=== PATIENT | female | born 2000 | race Caucasian/White ===

== ENCOUNTER 2022-06-14 14:28 | Emergency (ER) | payer SELFPAY ==
[2022-06-14 14:49] VITALS: BP 135/87; PULSE 109; RESP 18; TEMP 36.9; O2SAT 98; BMI 24.5
[2022-06-14 18:42] LABS: Appearance Urine UA CLEAR; Bilirubin Urine UA NEGATIVE (NEGATIVE); Color Urine UA YELLOW; Glucose Urine UA TRACE g/dL (Negative); Ketones Urine UA NEGATIVE (NEGATIVE); Leukocyte Esterase Urine UA TRACE (NEGATIVE); Nitrite Urine UA NEGATIVE (Negative); Occult Blood Urine UA NEGATIVE (Negative); Protein Urine UA NEGATIVE (Negative); Urobilinogen Urine UA 0.2 E.U./dL (0.2)
[2022-06-14] MEDS: cefTRIAXone 1,000 MG in SODIUM CHLORIDE 0.9% 100 ML 200 MG IV (19:05)
[2022-06-14] MEDS: valACYclovir 500 MG TABLET 1000 MG PO (19:06)
[2022-06-14] MEDS: DOXYCYCLINE HYCLATE 100 MG TABLET PO (19:06)
[2022-06-14] MEDS: KETOROLAC 30 MG/ML VIAL 15 MG IM (19:06)
[2022-06-14 19:14] LABS: RBC Urine None Seen (0-5/HPF)
[2022-06-14 19:15] LABS: Bacteria Urine None Seen; Squamous Epithelial Cell Urine 0-1 /HPF (0-5/HPF); WBC Urine 0-1/HPF (0-5/HPF)
[2022-06-14 19:16] LABS: Add Manual Diff / Slide Review NO; Basophils Absolute Auto 100 /uL (0-100); Basophils Percent Auto 0.5 % (0-2); Eosinophils Absolute Auto 100 /uL (0-450); Eosinophils Percent Auto 0.5 % (2-4); Hematocrit 38.5 % (36-46); Hemoglobin 12.8 g/dL (12.0-16.0); Lymphocytes Absolute Auto 2500 /uL (1100-4500); Lymphocytes Percent Auto 21.1 % (25-40); Mean Corpuscular HGB Conc 33.2 % (30-36); Mean Corpuscular Hemoglobin 29.1 PG (26-34); Mean Corpuscular Volume 87.6 fL (80-100); Monocytes Absolute Auto 1200 /uL (0-900); Monocytes Percent Auto 10.5 % (3-14); Neutrophils Absolute Auto 7900 /uL (1500-7000); Neutrophils Percent Auto 67.4 % (50-75); Platelet Count 293 X10^3/uL (150-400); White Blood Cell Count 11.7 X10^3/uL (4.5-11.0)
--- NOTE | 2022-06-14 19:26 | ED_ITS ---
HPI - Female Genitourinary <JACQUIE Leahy - Last Filed: 06/14/22 20:16> General Chief complaint: Urogenital-Female Stated complaint: Pelvic pain Time Seen by Provider: 06/14/22 17:32 Source: patient Mode of arrival: Ambulatory History of Present Illness HPI Narrative: This is a 21-year-old female presents to the emergency department complaining rash of her genital region, swollen lymph nodes in her groin, mild abdominal pain in her groin region and denies dysuria, urinary frequency or urgency, flank pain, fever but endorses chills, states that she had intercourse approximately 3 weeks ago with her boyfriend who reportedly cheated on her so she is concerned about STDs or STIs. States that she does not have any history of herpes but is concerned about it mostly. She states that she just finished her menses, could be finishing it currently. Related Data Previous Rx's Medication Instructions Recorded cephalexin 500 mg capsule 500 mg PO QID 7 days #28 caps 06/14/22 doxycycline hyclate 100 mg capsule 100 mg PO BID 10 days #20 caps 06/14/22 mupirocin 2 % topical ointment 1 applic topical BID #15 grams 06/14/22 Allergies Allergy/AdvReac Type Severity Reaction Status Date / Time No Known Drug Allergies Allergy Verified 06/14/22 14:55 Review of Systems <JACQUIE Leahy - Last Filed: 06/14/22 20:16> Review of Systems Narrative: Review of systems is negative for acute abnormalities unless otherwise noted in HPI Patient History <JACQUIE Leahy - Last Filed: 06/14/22 20:16> alcohol intake frequency: a few times a week Substance Use Type: marijuana Exam <JACQUIE Leahy Last Filed: 06/14/22 20:16> Narrative Exam Narrative: Reviewed vitals signs and nursing notes. General: cooperative, comfortable, in no acute distress, well groomed HEENT: symmetrical facial expressions, moist mucous membranes Cardiovascular: regular rate and rhythm, no peripheral edema, warm extremities Respiratory: normal effort, able to speak in complete sentences, without wheezing, stridor, or abnormal breath sounds. No retractions or tachypnea. GI: abdomen soft, nontender to palpation, nondistended, without masses, rebound tenderness or exquisite tenderness with exam. MSK: moves all extremities, neurovascularly intact, no weakness, normal tone Skin: brisk capillary refill, folliculitis versus cellulitis of her external labia, genital region where the pubic hair grows, erythema ascending on the right groin Chief Resource Officer: Maculopapular raised lesions appears like folliculitis with an erythematous base, warmth, from the bass of the clitoris and external labia, right groin adenopathy with exquisite tenderness, warmth, vaginal exam without foreign body, odor, or abnormal vaginal secretion. Wound culture, HSV culture was taken from the drainage of 1 of the lesions at the top of the clitoris, UA pending Neuro: normal speech and cognition, A&O x3, ambulatory, clear speech Psych: mental status is grossly normal, congruent mood, normal affect, pleasant and cooperative Initial Vital Signs Initial Vital Signs: Vital Signs Temperature 98.5 F 06/14/22 14:49 Pulse Rate 109 H 06/14/22 14:49 Respiratory Rate 18 06/14/22 14:49 Blood Pressure 135/87 06/14/22 14:49 Pulse Oximetry 98 06/14/22 14:49 Oxygen Delivery Method 06/14/22 14:49 <Noah Lyn MD - Last Filed: 06/15/22 02:03> Initial Vital Signs Initial Vital Signs: Vital Signs Temperature 98.5 F 06/14/22 14:49 Pulse Rate 109 H 06/14/22 14:49 Respiratory Rate 18 06/14/22 14:49 Blood Pressure 135/87 06/14/22 14:49 Pulse Oximetry 98 06/14/22 14:49 Oxygen Delivery Method 06/14/22 14:49 Course <JACQUIE Leahy - Last Filed: 06/14/22 20:16> Orders Ordered: ED Orders 06/14/22 18:00 UA Complete [Urinalysis and Microscopic] Stat Urine Culture Stat Wet Prep Tric BV Maryann Stat 06/14/22 18:20 Chlamydia Gonorrhea PCR -URINE Stat 06/14/22 18:43 HSV 1/2 DNA PCR SWAB or BLOOD Stat 06/14/22 18:44 Blood Culture Stat 06/14/22 18:55 CBC Auto Diff [Complete Blood Count AUTO DIFF] Stat CMP [Comprehensive Metabolic Panel] Stat CRP [C-Reactive Protein Quant] Stat HSV 1/2 DNA PCR SWAB or BLOOD Stat Test [HCG Quantitative /Beta subunit] Stat Procalcitonin Stat 06/14/22 20:30 Genital Culture Stat Discontinued Medications Doxycycline Hyclate (Doxycycline Hyclate 100 Mg Tablet) 100 mg PO NOW ONE Stop: 06/14/22 18:45 Last Admin: 06/14/22 19:06 Dose: 100 mg Documented By: ROSE Ceftriaxone Sodium 1,000 mg/ (Sodium Chloride) 100 mls @ 200 mls/hr IV NOW ONE Stop: 06/14/22 18:45 Last Infusion: 06/14/22 19:40 Dose: 0 mls/hr Documented By: Admin: 06/14/22 19:05 Dose: 200 mls/hr Documented By: ROSE Ketorolac Tromethamine (Ketorolac 30 Mg/Ml Vial) 15 mg IM NOW ONE Stop: 06/14/22 18:45 Last Admin: 06/14/22 19:06 Dose: 15 mg Documented By: ROSE Valacyclovir HCl (Valacyclovir 500 Mg Tablet) 1,000 mg PO NOW ONE Stop: 06/14/22 18:45 Last Admin: 06/14/22 19:06 Dose: 1,000 mg Documented By: ROSE Vital Signs Vital signs: Vital Signs - 8 hr 06/14/22 19:40 Pulse Rate 90 Respiratory Rate 17 Blood Pressure 136/77 Pulse Oximetry 98 Oxygen Delivery Method Room Air <Noah Lyn MD - Last Filed: 06/15/22 02:03> Orders Ordered: ED Orders 06/14/22 18:00 UA Complete [Urinalysis and Microscopic] Stat Urine Culture Stat Wet Prep Tric BV Maryann Stat 06/14/22 18:20 Chlamydia Gonorrhea PCR -URINE Stat 06/14/22 18:43 HSV 1/2 DNA PCR SWAB or BLOOD Stat 06/14/22 18:44 Blood Culture Stat 06/14/22 18:55 CBC Auto Diff [Complete Blood Count AUTO DIFF] Stat CMP [Comprehensive Metabolic Panel] Stat CRP [C-Reactive Protein Quant] Stat HSV 1/2 DNA PCR SWAB or BLOOD Stat Test [HCG Quantitative /Beta subunit] Stat Procalcitonin Stat 06/14/22 20:30 Genital Culture Stat Discontinued Medications Doxycycline Hyclate (Doxycycline Hyclate 100 Mg Tablet) 100 mg PO NOW ONE Stop: 06/14/22 18:45 Last Admin: 06/14/22 19:06 Dose: 100 mg Documented By: ROSE Ceftriaxone Sodium 1,000 mg/ (Sodium Chloride) 100 mls @ 200 mls/hr IV NOW ONE Stop: 06/14/22 18:45 Last Infusion: 06/14/22 19:40 Dose: 0 mls/hr Documented By: Admin: 06/14/22 19:05 Dose: 200 mls/hr Documented By: ROSE Ketorolac Tromethamine (Ketorolac 30 Mg/Ml Vial) 15 mg IM NOW ONE Stop: 06/14/22 18:45 Last Admin: 06/14/22 19:06 Dose: 15 mg Documented By: ROSE Valacyclovir HCl (Valacyclovir 500 Mg Tablet) 1,000 mg PO NOW ONE Stop: 06/14/22 18:45 Last Admin: 06/14/22 19:06 Dose: 1,000 mg Documented By: ROSE Vital Signs Vital signs: Vital Signs - 8 hr 06/14/22 19:40 Pulse Rate 90 Respiratory Rate 17 Blood Pressure 136/77 Pulse Oximetry 98 Oxygen Delivery Method Room Air MDM - Female Genitourinary <JACQUIE Leahy - Last Filed: 06/14/22 20:16> Lab Data Result diagrams: 06/14/22 18:55 06/14/22 18:55 Labs: Lab Results 06/14/22 06/14/22 06/14/22 Range/Units 18:00 18:20 18:55 WBC 11.7 H (4.5-11.0) X10^3/uL RBC 4.40 (4.0-5.2) X10^6/uL Hgb 12.8 (12.0-16.0) g/dL Hct 38.5 (36-46) % MCV 87.6 (80-100) fL MCH 29.1 (26-34) PG MCHC 33.2 (30-36) % RDW 14.0 (11.6-14.8) % Plt Count 293 (150-400) X10^3/uL Neut % (Auto) 67.4 (50-75) % Lymph % (Auto) 21.1 L (25-40) % [place] % (Auto) 10.5 (3-14) % Eos % (Auto) 0.5 L (2-4) % Baso % (Auto) 0.5 (0-2) % Neut # (Auto) 7900 H (6837-9086) /uL Lymph # (Auto) 2500 (7453-1997) /uL [place] # (Auto) 1200 H (0-900) /uL Eos # (Auto) 100 (0-450) /uL Baso # (Auto) 100 (0-100) /uL Sodium (137-145) mmol/L Potassium (3.4-5.1) mmol/L Chloride (98-107) mmol/L Carbon Dioxide (22-32) mmol/L BUN (7-17) mg/dL Creatinine (0.52-1.04) mg/dL Estimated GFR (>60) mL/min BUN/Creatinine Ratio (6-22) Glucose (70-100) mg/dL Calcium (8.4-10.2) mg/dL Total Bilirubin (0.2-1.3) mg/dL AST (14-36) IU/L ALT (<35) IU/L Alkaline Phosphatase (38-126) U/L C-Reactive Protein (<1.0) mg/dL Total Protein (6.3-8.2) g/dL Albumin (3.5-5.0) g/dL Globulin (1.7-4.1) g/dL Albumin/Globulin Ratio (1.0-2.8) Procalcitonin (<0.5) ng/mL HCG, Quant mIU/mL Urine Color Yellow Urine Appearance Clear Urine pH 7.0 (4.5-8.0) Ur Specific [place] 1.010 (1.000-1.035) Urine Protein Negative (Negative) Urine Glucose (UA) Trace H (Negative) g/dL Urine Ketones Negative (NEGATIVE) Urine Occult Blood Negative (Negative) Urine Nitrate Negative (Negative) Urine Bilirubin Negative (NEGATIVE) Urine Urobilinogen 0.2 (0.2) E.U./dL Ur Leukocyte Esterase Trace H (NEGATIVE) Urine RBC None seen (0-5/HPF) Urine WBC 0-1/hpf (0-5/HPF) Ur Squamous Epith Cells 0-1 /hpf (0-5/HPF) Urine Bacteria None seen (None) Ur Chlamydia DNA (PCR) Not detected N gonorrhoeae DNA (PCR) Not detected 06/14/22 06/14/22 Range/Units 18:55 18:55 WBC (4.5-11.0) X10^3/uL RBC (4.0-5.2) X10^6/uL Hgb (12.0-16.0) g/dL Hct (36-46) % MCV (80-100) fL MCH (26-34) PG MCHC (30-36) % RDW (11.6-14.8) % Plt Count (150-400) X10^3/uL Neut % (Auto) (50-75) % Lymph % (Auto) (25-40) % [place] % (Auto) (3-14) % Eos % (Auto) (2-4) % Baso % (Auto) (0-2) % Neut # (Auto) (6431-1874) /uL Lymph # (Auto) (5962-9338) /uL [place] # (Auto) (0-900) /uL Eos # (Auto) (0-450) /uL Baso # (Auto) (0-100) /uL Sodium 138 (137-145) mmol/L Potassium 3.6 (3.4-5.1) mmol/L Chloride 101 (98-107) mmol/L Carbon Dioxide 26 (22-32) mmol/L BUN 7 (7-17) mg/dL Creatinine 0.66 (0.52-1.04) mg/dL Estimated GFR > 60 (>60) mL/min BUN/Creatinine Ratio 10.6 (6-22) Glucose 93 (70-100) mg/dL Calcium 9.3 (8.4-10.2) mg/dL Total Bilirubin 0.4 (0.2-1.3) mg/dL AST 24 (14-36) IU/L ALT 20 (<35) IU/L Alkaline Phosphatase 97 (38-126) U/L C-Reactive Protein 4.5 H (<1.0) mg/dL Total Protein 8.9 H (6.3-8.2) g/dL Albumin 4.7 (3.5-5.0) g/dL Globulin 4.2 H (1.7-4.1) g/dL Albumin/Globulin Ratio 1.1 (1.0-2.8) Procalcitonin 0.07 (<0.5) ng/mL HCG, Quant < 2.4 mIU/mL Urine Color Urine Appearance Urine pH (4.5-8.0) Ur Specific [place] (1.000-1.035) Urine Protein (Negative) Urine Glucose (UA) (Negative) g/dL Urine Ketones (NEGATIVE) Urine Occult Blood (Negative) Urine Nitrate (Negative) Urine Bilirubin (NEGATIVE) Urine Urobilinogen (0.2) E.U./dL Ur Leukocyte Esterase (NEGATIVE) Urine RBC (0-5/HPF) Urine WBC (0-5/HPF) Ur Squamous Epith Cells (0-5/HPF) Urine Bacteria (None) Ur Chlamydia DNA (PCR) N gonorrhoeae DNA (PCR) MDM Narrative Medical decision making narrative: This is a 21-year-old female presents to the emergency department with a rash on her genital region, reportedly her significant other cheated on her while they were together within the last month and she is concerned about STIs. She is had an itchy rash of her external genitalia for 1-2 weeks, states it started at the bass of the clitoris, progressed to tenderness, now with macular papule raised l esions, an erythematous base, right groin lymphadenopathy with patient endorsing chills. She has a mild leukocytosis of 11.7, and was given Toradol. Her UA was positive for leukocyte esterase without significant bacterial load. Wet prep was completed and was negative for Trichomonas, Maryann, WBCs and clue cells. Blood cultures were obtained prior to antibiotics, HSV swab was obtained from secretions from her clitoral bass, wound culture was obtained from this area as well, gonorrhea and chlamydia via dirty urine and tests are pending for her herpes, chlamydia, gonorrhea, cultures. She was treated in the emergency department with ceftriaxone and doxycycline, encouraged to stay hydrated, was prescribed cephalexin and doxycycline as this rash looked most like cellulitis versus folliculitis. There were no blisters or fluid-filled pustules, patient does shave her genital region and has not recently. She denies any upper respiratory illness symptoms, endorses some mild abdominal pain which she thinks is related to her groin pain. Patient wishes to be discharged, will follow up on her cultures, she is given strict return precautions for any worsening of her symptoms, she is not had nausea or vomiting, denies abdominal surgery in the past. She just finished her menses. Patient is appropriate and amenable to discharge home. Vital signs are stable on repeat examination is unremarkable. Patient has been informed of results. Patient has been given strict return to ER precautions for any new or worsening symptoms. Patient understands to follow up closely with outpatient providers as instructed. Patient understands plan and agrees to discharge home. All questions and concerns answered at this time. Update, patient's gonorrhea and chlamydia came back negative via urine PCR, her CRP is elevated at 4.5, hCG is negative at 2.4 <Noah Lyn MD - Last Filed: 06/15/22 02:03> Lab Data Labs: Lab Results 06/14/22 06/14/22 06/14/22 Range/Units 18:00 18:20 18:55 WBC 11.7 H (4.5-11.0) X10^3/uL RBC 4.40 (4.0-5.2) X10^6/uL Hgb 12.8 (12.0-16.0) g/dL Hct 38.5 (36-46) % MCV 87.6 (80-100) fL MCH 29.1 (26-34) PG MCHC 33.2 (30-36) % RDW 14.0 (11.6-14.8) % Plt Count 293 (150-400) X10^3/uL Neut % (Auto) 67.4 (50-75) % Lymph % (Auto) 21.1 L (25-40) % [place] % (Auto) 10.5 (3-14) % Eos % (Auto) 0.5 L (2-4) % Baso % (Auto) 0.5 (0-2) % Neut # (Auto) 7900 H (5903-1533) /uL Lymph # (Auto) 2500 (7601-6447) /uL [place] # (Auto) 1200 H (0-900) /uL Eos # (Auto) 100 (0-450) /uL Baso # (Auto) 100 (0-100) /uL Sodium (137-145) mmol/L Potassium (3.4-5.1) mmol/L Chloride (98-107) mmol/L Carbon Dioxide (22-32) mmol/L BUN (7-17) mg/dL Creatinine (0.52-1.04) mg/dL Estimated GFR (>60) mL/min BUN/Creatinine Ratio (6-22) Glucose (70-100) mg/dL Calcium (8.4-10.2) mg/dL Total Bilirubin (0.2-1.3) mg/dL AST (14-36) IU/L ALT (<35) IU/L Alkaline Phosphatase (38-126) U/L C-Reactive Protein (<1.0) mg/dL Total Protein (6.3-8.2) g/dL Albumin (3.5-5.0) g/dL Globulin (1.7-4.1) g/dL Albumin/Globulin Ratio (1.0-2.8) Procalcitonin (<0.5) ng/mL HCG, Quant mIU/mL Urine Color Yellow Urine Appearance Clear Urine pH 7.0 (4.5-8.0) Ur Specific [place] 1.010 (1.000-1.035) Urine Protein Negative (Negative) Urine Glucose (UA) Trace H (Negative) g/dL Urine Ketones Negative (NEGATIVE) Urine Occult Blood Negative (Negative) Urine Nitrate Negative (Negative) Urine Bilirubin Negative (NEGATIVE) Urine Urobilinogen 0.2 (0.2) E.U./dL Ur Leukocyte Esterase Trace H (NEGATIVE) Urine RBC None seen (0-5/HPF) Urine WBC 0-1/hpf (0-5/HPF) Ur Squamous Epith Cells 0-1 /hpf (0-5/HPF) Urine Bacteria None seen (None) Ur Chlamydia DNA (PCR) Not detected N gonorrhoeae DNA (PCR) Not detected 06/14/22 06/14/22 Range/Units 18:55 18:55 WBC (4.5-11.0) X10^3/uL RBC (4.0-5.2) X10^6/uL Hgb (12.0-16.0) g/dL Hct (36-46) % MCV (80-100) fL MCH (26-34) PG MCHC (30-36) % RDW (11.6-14.8) % Plt Count (150-400) X10^3/uL Neut % (Auto) (50-75) % Lymph % (Auto) (25-40) % [place] % (Auto) (3-14) % Eos % (Auto) (2-4) % Baso % (Auto) (0-2) % Neut # (Auto) (3146-6675) /uL Lymph # (Auto) (6703-2150) /uL [place] # (Auto) (0-900) /uL Eos # (Auto) (0-450) /uL Baso # (Auto) (0-100) /uL Sodium 138 (137-145) mmol/L Potassium 3.6 (3.4-5.1) mmol/L Chloride 101 (98-107) mmol/L Carbon Dioxide 26 (22-32) mmol/L BUN 7 (7-17) mg/dL Creatinine 0.66 (0.52-1.04) mg/dL Estimated GFR > 60 (>60) mL/min BUN/Creatinine Ratio 10.6 (6-22) Glucose 93 (70-100) mg/dL Calcium 9.3 (8.4-10.2) mg/dL Total Bilirubin 0.4 (0.2-1.3) mg/dL AST 24 (14-36) IU/L ALT 20 (<35) IU/L Alkaline Phosphatase 97 (38-126) U/L C-Reactive Protein 4.5 H (<1.0) mg/dL Total Protein 8.9 H (6.3-8.2) g/dL Albumin 4.7 (3.5-5.0) g/dL Globulin 4.2 H (1.7-4.1) g/dL Albumin/Globulin Ratio 1.1 (1.0-2.8) Procalcitonin 0.07 (<0.5) ng/mL HCG, Quant < 2.4 mIU/mL Urine Color Urine Appearance Urine pH (4.5-8.0) Ur Specific [place] (1.000-1.035) Urine Protein (Negative) Urine Glucose (UA) (Negative) g/dL Urine Ketones (NEGATIVE) Urine Occult Blood (Negative) Urine Nitrate (Negative) Urine Bilirubin (NEGATIVE) Urine Urobilinogen (0.2) E.U./dL Ur Leukocyte Esterase (NEGATIVE) Urine RBC (0-5/HPF) Urine WBC (0-5/HPF) Ur Squamous Epith Cells (0-5/HPF) Urine Bacteria (None) Ur Chlamydia DNA (PCR) N gonorrhoeae DNA (PCR) Discharge Plan Departure Patient Disposition: Home Clinical Impression: Folliculitis, Inguinal adenopathy Cellulitis Qualifiers: Site of cellulitis: trunk Site of cellulitis of trunk: groin Qualified Code(s): L03.314 - Cellulitis of groin Acute cystitis Qualifiers: Hematuria presence: without hematuria Qualified Code(s): N30.00 - Acute cystitis without hematuria Instructions: Facts About Sexually Transmitted Infections, Chlamydia: The Silent STD, Cellulitis, DI for Folliculitis Activity Restrictions/Additional Instructions: *You have been diagnosed with a rash of your genital region which we do know if it is bacteria, viral, or something else. Your vaginal swab was negative for yeast, bacterial vaginosis, and Trichomonas. Please return to the emergency department if you have any worsening of this, or if it is not getting better in the next 24 hours after antibiotics. Please take ibuprofen and Tylenol as needed for pain, use topical mupirocin ointment to the open areas to prevent secondary worsening infection. If you have itching again, please consider that a might be a yeast infection secondary to the antibiotics if it is. Please stay hydrated, return for any worsening, hopefully 1 of these tests will result and we can figure this out in the next 24-48 hours. Thank you for your patience today, and for coming in. I hope that this starts getting better soon. I will check a your lab work tomorrow and see if it is back when I come in. *What to do: *Please continue to take your regular medications as directed. [x ] New medication prescriptions sent to your pharmacy: [ [facility]] [ ] New medication written as a paper prescription [ ] No new medications given *Please follow up with your primary care provider in 2-3 days, call for an appointment. Let them know you were seen in the Emergency Department and that we asked that you be seen for follow-up. We will electronically transmit a record of today's note if your PCP is in our system *If you do not have a primary care provider please contact [phone] to establish care with one of the [facility] primary care providers. *Return to Emergency Department if you should have any new, worsening, or concerning symptoms, such as [fever greater than 101F, chills, worsening pain, persistent vomiting or other bothersome symptoms]. Prescriptions: New doxycycline hyclate 100 mg capsule 100 mg PO BID 10 Days Qty: 20 0RF cephalexin 500 mg capsule 500 mg PO QID 7 Days Qty: 28 0RF mupirocin 2 % ointment 1 applic topical BID Qty: 15 0RF Visit Report Forms: Patient Portal/API <Noah Lyn MD - Last Filed: 06/15/22 02:03> Cosign ED Attending Cosignature Attestation: I was immediately available in the department for consultation. ?This documentation has been reviewed and I agree with assessment and plan. Supervised by Noah Lyn MD
[2022-06-14 19:40] VITALS: BP 136/77; PULSE 90; RESP 17; O2SAT 98
[2022-06-14 19:44] LABS: HCG Quantitative /Beta subunit < 2.4 mIU/mL
[2022-06-14 19:54] LABS: Urine N gonorrhoeae NOT DETECTED
[2022-06-14 19:58] LABS: Urine Chlamydia NOT DETECTED
[2022-06-14 20:00] LABS: Alanine Aminotransferase 20 IU/L (<35); Albumin 4.7 g/dL (3.5-5.0); Albumin Globulin Ratio 1.1 (1.0-2.8); Alkaline Phosphatase 97 U/L (38-126); Aspartate Aminotransferase 24 IU/L (14-36); BUN Creatinine Ratio 10.6 (6-22); Bilirubin Total 0.4 mg/dL (0.2-1.3); Blood Urea Nitrogen 7 mg/dL (7-17); C-Reactive Protein Quant 4.5 mg/dL (<1.0); Calcium 9.3 mg/dL (8.4-10.2); Carbon Dioxide 26 mmol/L (22-32); Chloride 101 mmol/L (98-107); Estimated Glomerular Filt Rate > 60 mL/min (>60); Globulin 4.2 g/dL (1.7-4.1); Glucose 93 mg/dL (70-100); HEMOLYSIS < 15 (0-50); Potassium 3.6 mmol/L (3.4-5.1); Sodium 138 mmol/L (137-145); Total Protein 8.9 g/dL (6.3-8.2)
[2022-06-14 20:13] LABS: Procalcitonin 0.07 ng/mL (<0.5)
--- NOTE | 2022-06-15 10:57 | PC.NURSE ---
Patient called, asking to transfer prescription to [facility]. Got verbal ok from Dr. Shyann Ivey and called prescriptions into [facility] pharmacy per patient request. Informed patient she will need to cancel the [facility] prescriptions since they were already filled. Patient understands.
[2022-06-19 06:12] LABS: HSV 1 DNA Negative (Negative); HSV 2 DNA Negative (Negative)
== END 2022-06-14 19:57 | disposition home or self-care (01) ==
PROVIDERS: Emergency Provider Nurse Practitioner Critical Care Medicine
DX: L03.314 Cellulitis of groin (principal); N30.00 Acute cystitis without hematuria; L73.9 Follicular disorder, unspecified; R59.0 Localized enlarged lymph nodes
CPT/HCPCS: 80053; 81001; 84145; 84702; 85025; 86140; 87040; 87070; 87077; 87086; 87147; 87205; 87210; 87491; 87529; 87591; 96365; 96372; 99284; J0696; J1885

== ENCOUNTER 2023-06-24 15:14 | Emergency (ER) | payer OTHER, SELFPAY ==
[2023-06-24 15:37] VITALS: BP 112/62; PULSE 89; RESP 17; TEMP 37.2; O2SAT 97; BMI 24.2
--- NOTE | 2023-06-24 15:49 | ED.UPPEXIN ---
HPI - Extremity Injury (Upper) <REBECA Deleon Last Filed: 06/24/23 16:58> General Chief Complaint: Wound/Laceration Stated Complaint: rt pointer finger lac Time Seen by Provider: 06/24/23 15:33 Source: patient Mode of arrival: Ambulatory History of Present Illness HPI narrative: This is a 22-year-old female presents emergency department due to a right pointer finger injury. 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 She denies any active bleeding. No changes in range of motion of the finger. Unsure of tetanus is up-to-date. Related Data Home Medications Medication Instructions Recorded Confirmed sertraline 50 mg tablet (Zoloft) 50 mg PO DAILY 06/24/23 06/24/23 Allergies Allergy/AdvReac Type Severity Reaction Status Date / Time No Known Drug Allergies Allergy Verified 06/24/23 15:39 Review of Systems <REBECA Deleon Last Filed: 06/24/23 16:58> Review of Systems Narrative: GENERAL: Denies chills, fatigue, malaise, fever, sweats. HEENT: Denies sinus pain, ear pain, sore throat, difficulty swallowing, dizziness. RESPIRATORY: Denies dyspnea, cough, wheezing, hemoptysis, sputum. CARDIOVASCULAR: Denies chest pain, palpitations, orthopnea, edema, GASTROINTESTINAL: Denies nausea, vomiting, abdominal pain, diarrhea, constipation, melena. : Denies dysuria, frequency, incontinence, hematuria, urinary retention. MUSCULOSKELETAL: denies weakness, joint pain, or bony pain SKIN: Right pointer finger laceration NEUROLOGIC: Denies weakness, headache, numbness, change in speech, confusion, seizures, incoordination. PSYCHIATRIC: No concerning psychosocial issues. 12 point review of systems is negative except for those stated above Patient History <REBECA Deleon Last Filed: 06/24/23 16:58> Social History Smoking Status: Never smoker Smoking Status: Never smoker alcohol intake frequency: a few times a week Substance Use Type: marijuana Exam <REBECA Deleon Last Filed: 06/24/23 16:58> Narrative Exam Narrative: GENERAL: Well-developed patient, in mild distress. HEAD: Atraumatic. Normocephalic. EYES: Pupils equal round and reactive. Extraocular motions intact. No scleral icterus. No injection or drainage. ENT: Nose without bleeding, purulent drainage. Throat without erythema, tonsillar hypertrophy or exudate. Airway patent. NECK: Trachea midline. Non tender CARDIOVASCULAR: Regular rate and rhythm without murmurs, gallops, or rubs. RESPIRATORY: Clear to auscultation. Breath sounds equal bilaterally. No wheezes, rales, or rhonchi. GASTROINTESTINAL: Abdomen soft, non-tender, nondistended. EXTREMITIES: No edema or joint tenderness. BACK: Nontender without deformity or crepitance. No flank tenderness. NEURO: AOx3. SKIN: Avulsion injury to the tip of the right 2nd digit. No active bleeding, no deeper lacerations, full range of motion of the finger Initial Vital Signs Initial Vital Signs: Vital Signs Temperature 98.9 F 06/24/23 15:37 Pulse Rate 89 06/24/23 15:37 Respiratory Rate 17 06/24/23 15:37 Blood Pressure 112/62 06/24/23 15:37 Pulse Oximetry 97 06/24/23 15:37 Oxygen Delivery Method Room Air 06/24/23 15:37 <Noah Lyn MD - Last Filed: 07/08/23 12:57> Initial Vital Signs Initial Vital Signs: Vital Signs Temperature 98.9 F 06/24/23 15:37 Pulse Rate 89 06/24/23 15:37 Respiratory Rate 17 06/24/23 15:37 Blood Pressure 112/62 06/24/23 15:37 Pulse Oximetry 97 06/24/23 15:37 Oxygen Delivery Method Room Air 06/24/23 15:37 Course <Kelton Singh PA-C - Last Filed: 06/24/23 16:58> Orders Ordered: Discontinued Medications Bacitracin (Bacitracin Oint 0.9 Gm Pckt) 1 applic TOP NOW ONE Stop: 06/24/23 15:49 Last Admin: 06/24/23 16:01 Dose: 1 applic Documented By: MARITZA Diphtheria/Tetanus/Acell Pertussis (Tet,Diph,Pertuss(Acell),Vac/Pf 0.5 Ml Syringe) 0.5 ml IM .ONCE ONE Stop: 06/24/23 15:49 Last Admin: 06/24/23 16:01 Dose: 0.5 ml Documented By: ES Vital Signs Vital signs: Vital Signs - 8 hr 06/24/23 15:37 Temperature 98.9 F Pulse Rate 89 Respiratory Rate 17 Blood Pressure 112/62 Pulse Oximetry 97 Oxygen Delivery Method Room Air <Noah Lyn MD - Last Filed: 07/08/23 12:57> Orders Ordered: Discontinued Medications Bacitracin (Bacitracin Oint 0.9 Gm Pckt) 1 applic TOP NOW ONE Stop: 06/24/23 15:49 Last Admin: 06/24/23 16:01 Dose: 1 applic Documented By: MARITZA Diphtheria/Tetanus/Acell Pertussis (Tet,Diph,Pertuss(Acell),Vac/Pf 0.5 Ml Syringe) 0.5 ml IM .ONCE ONE Stop: 06/24/23 15:49 Last Admin: 06/24/23 16:01 Dose: 0.5 ml Documented By: MARITZA Vital Signs Vital signs: Vital Signs - 8 hr 06/24/23 15:37 Temperature 98.9 F Pulse Rate 89 Respiratory Rate 17 Blood Pressure 112/62 Pulse Oximetry 97 Oxygen Delivery Method Room Air MDM - Extremity Injury (Upper) <Kelton Singh PA-C - Last Filed: 06/24/23 16:58> MDM Narrative Medical decision making narrative: MDM * differential diagnosis includes but not limited to tendon injury, laceration, avulsion injury, fracture * Prior records reviewed: Patient has not been here for similar symptoms in the past. * My lab interpretation: None obtained * My imgaing interpretation: None obtained * Clinical Decision Rules/Scores evaluated: None * Independent discussions with: None ED Course: This is a 22-year-old female presents to the emergency department due to avulsion injury to the right 2nd digit. She had full range of motion of the finger and no concern for tendon injury. Very superficial avulsion injury and shared decision-making utilized and no laceration repair performed. Tetanus was updated. Wound was cleaned and bandaged. Shared Decision Making: Discussed plan with patient who is comfortable with the plan Social Considerations: None Disposition: Discharged to home Discharge Plan Departure Patient Disposition: Home Clinical Impression: Avulsion of skin Activity Restrictions/Additional Instructions: Thank you for coming to the [facility] Emergency Department today. As we discussed the wound should scab over in the flap of skin should off eventually. Please take oral antibiotics as prescribed. I hope you feel better soon. Please follow up with your primary care provider within a week if your symptoms continue. If you do not have a primary care provider please contact the [facility] Resource line at [phone]. They will ask some questions about your medical history and help you get set up with a provider in the community. Prescriptions: No Action sertraline [Zoloft] 50 mg Tablet 50 mg PO DAILY Stand Alone Forms: Patient Portal/API ED Sign-out <Noah Lyn MD - Last Filed: 07/08/23 12:57> Cosign ED Attending Cosshantellature Attestation: I was immediately available in the department for consultation. This documentation has been reviewed and I agree with assessment and plan. Supervised by Noah Lyn MD
[2023-06-24] MEDS: BACITRACIN OINT 0.9 GM PCKT 1 APPLIC TOP (16:01)
[2023-06-24] MEDS: TET,DIPH,PERTUSS(ACELL),VAC/PF 0.5 ML SYRINGE IM (16:01)
== END 2023-06-24 16:11 | disposition home or self-care (01) ==
PROVIDERS: Emergency Provider Physician Assistant Medical
DX: S61.200A Unspecified open wound of right index finger without damage to nail, initial encounter (principal); W26.8XXA Contact with other sharp object(s), not elsewhere classified, initial encounter; Y99.0 Civilian activity done for income or pay; Z23 Encounter for immunization
CPT/HCPCS: 90471; 99283; 90715